=== PATIENT | male | born 1980 | race Caucasian/White ===

== ENCOUNTER 2022-01-28 19:33 | Inpatient (IN) | payer OTHER ==
[2022-01-28 20:15] VITALS: BMI 24.7
[2022-01-28] MEDS ORDERED: DICYCLOMINE HCL 10 MG CAPSULE PO PRN (21:13)
[2022-01-28] MEDS ORDERED: IBUPROFEN 400 MG TABLET (FP) PO PRN (21:13)
[2022-01-28] MEDS ORDERED: BISMUTH SUBSALICYLATE 524 MG/30 ML PO PRN (21:13)
[2022-01-28] MEDS ORDERED: ACETAMINOPHEN 325 MG TABLET (FP) PO PRN ×2 (21:13)
[2022-01-28] MEDS ORDERED: MAG HYDROX/AL HYDROX/SIMETH 30 ML UNIT-DOSE CUP PO PRN (21:13)
[2022-01-28] MEDS ORDERED: ONDANSETRON *ODT* 4 MG TABLET SL PRN (21:13)
[2022-01-28] MEDS ORDERED: NICOTINE POLACRILEX 2 MG GUM BUC PRN (21:13)
[2022-01-28] MEDS ORDERED: MAGNESIUM CITRATE 300 ML BOTTLE PO PRN (21:13)
[2022-01-28] MEDS ORDERED: LOPERAMIDE HCL 2 MG CAPSULE PO PRN (21:13)
[2022-01-28] MEDS ORDERED: MAGNESIUM HYDROX 2400MG/30ML ORAL SUSPENSION 30 ML CUP PO PRN (21:13)
[2022-01-28] MEDS ORDERED: BENZOCAINE/MENTHOL (CHLORASEPTIC ) LOZENGE MM PRN (21:13)
[2022-01-28] MEDS ORDERED: chlordiazePOXIDE HCL 25 MG CAPSULE PO PRN (21:13)
[2022-01-28] MEDS: METHOCARBAMOL 500 MG TABLET PO PRN (23:37)
[2022-01-28] MEDS: chlordiazePOXIDE HCL 25 MG CAPSULE PO SCH (23:37)
[2022-01-28] MEDS: MELATONIN 5 MG TABLETS PO SCH (23:38)
[2022-01-28] MEDS: THIAMINE HCL 100 MG TABLET (FP) PO SCH (23:39)
[2022-01-29] MEDS: chlordiazePOXIDE HCL 25 MG CAPSULE PO SCH ×4 (05:39→22:36)
[2022-01-29 10:11] LABS: HEMOGLOBIN 13.9 GM/dL (11.7-16.9); MCH 31.4 pg (25.7-33.7); MCHC 33.9 g/dl (32.0-35.9); MEAN CELL VOLUME 92.6 fl (80-96); MEAN PLT VOLUME 7.5 fl (7.5-11.1); PLATELET COUNT 289 10^3/uL (134-434); RBC 4.43 M/mm3 (4.00-5.60); RDW 13.3 % (11.9-15.9)
[2022-01-29] MEDS: PRENATAL VITAMINS W/ FOLIC ACID TABLET (FP) PO SCH (10:31)
[2022-01-29] MEDS: NICOTINE 14 MG/24 HOURS TOPICAL PATCH TD SCH (10:31)
[2022-01-29] MEDS: METHOCARBAMOL 500 MG TABLET PO PRN ×2 (10:32→18:24)
[2022-01-29 11:28] LABS: CALCIUM 9.2 mg/dL (8.5-10.1)
[2022-01-29 11:29] LABS: ALBUMIN 3.9 g/dl (3.4-5.0); BLOOD UREA NITROGEN 9.9 mg/dL (7-18)
[2022-01-29 11:32] LABS: CREATININE 0.7 mg/dL (0.55-1.3)
[2022-01-29 11:33] LABS: TOT PROT 7.7 g/dl (6.4-8.2)
[2022-01-29] MEDS: MELATONIN 5 MG TABLETS PO SCH (22:34)
[2022-01-29] MEDS: THIAMINE HCL 100 MG TABLET (FP) PO SCH (22:34)
[2022-01-30] MEDS: chlordiazePOXIDE HCL 25 MG CAPSULE PO SCH ×4 (06:48→22:36)
[2022-01-30] MEDS: PRENATAL VITAMINS W/ FOLIC ACID TABLET (FP) PO SCH (11:13)
[2022-01-30] MEDS: buPROPion HCL 75 MG TABLET PO SCH (11:13)
[2022-01-30] MEDS: IBUPROFEN 600 MG TABLET (FP) PO PRN (11:13)
[2022-01-30] MEDS: NICOTINE 14 MG/24 HOURS TOPICAL PATCH TD SCH (11:15)
[2022-01-30] MEDS: METHOCARBAMOL 500 MG TABLET PO PRN (17:46)
[2022-01-30] MEDS: MELATONIN 5 MG TABLETS PO SCH (22:35)
[2022-01-30] MEDS: THIAMINE HCL 100 MG TABLET (FP) PO SCH (22:35)
[2022-01-31] MEDS ORDERED: chlordiazePOXIDE HCL 10 MG CAPSULE PO PRN
[2022-01-31] MEDS: chlordiazePOXIDE HCL 10 MG CAPSULE PO SCH ×4 (06:39→22:50)
[2022-01-31] MEDS: PRENATAL VITAMINS W/ FOLIC ACID TABLET (FP) PO SCH (11:10)
[2022-01-31] MEDS: NICOTINE 14 MG/24 HOURS TOPICAL PATCH TD SCH (11:10)
[2022-01-31] MEDS: buPROPion HCL 75 MG TABLET PO SCH (11:11)
[2022-01-31] MEDS: IBUPROFEN 600 MG TABLET (FP) PO PRN (11:11)
[2022-01-31] MEDS: METHOCARBAMOL 500 MG TABLET PO PRN (18:29)
[2022-01-31] MEDS: MELATONIN 5 MG TABLETS PO SCH (22:49)
[2022-01-31] MEDS: THIAMINE HCL 100 MG TABLET (FP) PO SCH (22:49)
[2022-02-01] MEDS: chlordiazePOXIDE HCL 10 MG CAPSULE PO SCH ×2 (06:59→17:35)
[2022-02-01] MEDS: PRENATAL VITAMINS W/ FOLIC ACID TABLET (FP) PO SCH (11:32)
[2022-02-01] MEDS: NICOTINE 14 MG/24 HOURS TOPICAL PATCH TD SCH (11:32)
[2022-02-01] MEDS: buPROPion HCL 75 MG TABLET PO SCH (11:32)
[2022-02-01] MEDS: METHOCARBAMOL 500 MG TABLET PO PRN ×2 (17:35→22:12)
[2022-02-01] MEDS: THIAMINE HCL 100 MG TABLET (FP) PO SCH (22:09)
[2022-02-01] MEDS: MELATONIN 5 MG TABLETS PO SCH (22:09)
[2022-02-02] MEDS ORDERED: chlordiazePOXIDE HCL 10 MG CAPSULE PO ONE (05:00)
[2022-02-02] MEDS: buPROPion HCL 75 MG TABLET PO SCH (11:08)
[2022-02-02] MEDS: PRENATAL VITAMINS W/ FOLIC ACID TABLET (FP) PO SCH (11:08)
[2022-02-02] MEDS: NICOTINE 14 MG/24 HOURS TOPICAL PATCH TD SCH (11:09)
[2022-02-02 13:33] VITALS: RESP 18
[2022-02-02] MEDS: THIAMINE HCL 100 MG TABLET (FP) PO SCH (23:07)
[2022-02-02] MEDS: MELATONIN 5 MG TABLETS PO SCH (23:07)
[2022-02-03 06:18] VITALS: BP 107/64; PULSE 79; TEMP 97.1
[2022-02-03] MEDS: PRENATAL VITAMINS W/ FOLIC ACID TABLET (FP) PO SCH (10:07)
[2022-02-03] MEDS: buPROPion HCL 75 MG TABLET PO SCH (10:07)
[2022-02-03] MEDS: NICOTINE 14 MG/24 HOURS TOPICAL PATCH TD SCH (10:10)
== END 2022-02-03 11:04 | disposition home or self-care (01) | DRG 774 ==
LOC: YASAS 19:33 → Y3N 22:33 → Y6N 01-29 22:26
PROVIDERS: ADMIT Allergy & Immunology; ATTEND Surgery
PROC: HZ2ZZZZ Detoxification Services for Substance Abuse Treatment (ICD-10-PCS; principal; 2022-01-28)
DX: F10.230 Alcohol dependence with withdrawal, uncomplicated (principal); F14.10 Cocaine abuse, uncomplicated; F12.10 Cannabis abuse, uncomplicated; F17.210 Nicotine dependence, cigarettes, uncomplicated; F19.24 Other psychoactive substance dependence with psychoactive substance-induced mood disorder; F41.9 Anxiety disorder, unspecified; F32.A Depression, unspecified; M54.42 Lumbago with sciatica, left side; Z20.822 Contact with and (suspected) exposure to COVID-19
CPT/HCPCS: 36415; 80053; 85027; 86780; 93005; 93010; C9803-CS; U0003; U0005